=== PATIENT | female | born 1955 | race Caucasian/White ===

== ENCOUNTER 2018-02-04 18:16 | Outpatient (REF) | payer BC, SELFPAY ==
[2018-02-04 20:49] LABS: Anion Gap 9.7 mmol/L (3-11); BUN 23 mg/dL (7-18); CO2 27.3 mmol/L (21.0-32.0); CREATININE 0.91 mg/dL (0.55-1.02); Calcium 9.1 mg/dL (8.5-10.1); Chloride 103 mmol/L (98-107); Glucose 86 mg/dL (70-100); Potassium 4.6 mmol/L (3.5-5.1); Sodium 140 mmol/L (136-145)
== END 2018-02-04 18:36 ==
LOC: NCHCN 18:16
PROVIDERS: PCP Physician Assistant Medical; Visit Provider Physician Assistant Medical
DX: Z00.00 Encounter for general adult medical examination without abnormal findings (principal); R79.89 Other specified abnormal findings of blood chemistry
CPT/HCPCS: 80048

== ENCOUNTER 2018-02-13 00:27 | Outpatient (CLI) | payer BC, SELFPAY ==
--- NOTE | 2018-02-13 08:00 | DI.US_ITS ---
SYMPTOM/DIAGNOSIS: RUQ PAIN, R10.11 ABDOMEN ULTRASOUND: Routine examination was performed. The aorta and IVC are unremarkable. The liver measures 18 cm. in length. There is diffuse increased echogenicity of the liver consistent with hepatic steatosis. There is a 0.9 by 1 by 1.2 cm. , avascular simple hepatic cyst in the right lobe. The gallbladder is negative. The common duct is within normal limits. The pancreas and spleen are unremarkable. The kidneys are unremarkable except for a 1.5 cm. parapelvic cyst in the left kidney. IMPRESSION: Hepatic steatosis.
== END 2018-02-13 00:47 ==
PROVIDERS: PCP Physician Assistant Medical; Visit Provider Physician Assistant Medical
DX: R10.11 Right upper quadrant pain (principal); K76.0 Fatty (change of) liver, not elsewhere classified
CPT/HCPCS: 76700

== ENCOUNTER 2018-10-20 16:22 | Outpatient (REF) | payer BC, SELFPAY | END 2018-10-20 16:42 | LOC: NCHCN 16:22 | PROVIDERS: PCP Physician Assistant Medical; Visit Provider Nurse Practitioner Family | DX: R30.0 Dysuria (principal); N89.8 Other specified noninflammatory disorders of vagina | CPT/HCPCS: 87086; 87480; 87510; 87660 ==